=== PATIENT | female | born 1955 | race Caucasian/White ===

== ENCOUNTER → 2017-06-20 | Outpatient (CLI) | payer MEDICARE, OTHER ==
[2017-06-20 11:59] LABS: ABG BASE EXCESS 13.6 MMOL/L (-2.5-2.5); ABG OXYGEN SATURATION 90 % (94-100); ABG PCO2 60 MMHG (35-45); ABG PH 7.42 (7.37-7.43); ABG PO2 56 MMHG (79-93); ABG TCO2 40.6 MMOL/L (21.0-31.0)
[2017-06-20 12:01] LABS: ALLENS TEST YES-POS
[2017-06-20 12:02] LABS: PATIENT TEMP 98.9; VENTILATOR NO
--- NOTE | 2017-06-20 12:29 | Diagnostic Imaging Report ---
INDICATION: Hypoxemia. PA and lateral chest. FINDINGS: There is some discoid atelectasis at the left lung base. There is a 1.5 cm nodular opacity in the right upper chest. There are no consolidating infiltrates. IMPRESSION: Left lower lobe discoid atelectasis. Possible developing nodule in right upper lobe. Short interval followup imaging recommended. Dictated by: Dictated on workstation # [id number]
== END ==
LOC: RAD 11:30
PROVIDERS: ATTEND Nurse Practitioner Family
DX: J98.11 Atelectasis (principal); J44.9 Chronic obstructive pulmonary disease, unspecified
CPT/HCPCS: 71046; 82805

== ENCOUNTER → 2017-06-26 | Outpatient (CLI) | payer MEDICARE, OTHER ==
[~2017-06-26] MED LIST: RT-ALBUTEROL SULF 2.5 MG/3 ML PRE-MIX VIAL INH ONE
== END ==
LOC: RT 13:13
PROVIDERS: ATTEND Nurse Practitioner Family
DX: J45.909 Unspecified asthma, uncomplicated (principal); J44.9 Chronic obstructive pulmonary disease, unspecified; R09.02 Hypoxemia
CPT/HCPCS: 94060; 94726; 94729

== ENCOUNTER 2017-07-03 21:14 | Outpatient (CLI) | payer MEDICARE, OTHER | END 2017-07-04 06:37 | disposition home or self-care (01) | LOC: SLEEP 21:14 | PROVIDERS: ATTEND Nurse Practitioner Family | DX: G47.33 Obstructive sleep apnea (adult) (pediatric) (principal); G25.81 Restless legs syndrome; G47.50 Parasomnia, unspecified; G47.10 Hypersomnia, unspecified | CPT/HCPCS: 95810 ==

== ENCOUNTER 2017-10-11 11:23 | Inpatient (IN) | payer MEDICARE, OTHER ==
[~2017-10-11] VITALS: Ht 162.6 cm; Wt 114.3 kg
[2017-10-11 11:45] VITALS: BP 145/85
[2017-10-11] MEDS ORDERED: IBUPROFEN 600 MG (MOTRIN) TAB PO PRN (11:45)
[2017-10-11] MEDS ORDERED: ACETAMINOPHEN 500 MG TAB (TYLENOL) PO PRN (11:45)
[2017-10-11] MEDS ORDERED: LOSA100T28 PO (12:12)
[2017-10-11] MEDS ORDERED: FERR325T18 PO (12:12)
[2017-10-11] MEDS ORDERED: TRAM50TA2 PO (12:12)
[2017-10-11] MEDS ORDERED: POTA20TA15 PO (12:12)
[2017-10-11] MEDS ORDERED: OMEP20CA12 PO (12:12)
[2017-10-11] MEDS ORDERED: METO2.5T PO (12:12)
[2017-10-11] MEDS ORDERED: FURO40TA4 PO (12:12)
[2017-10-11] MEDS ORDERED: METF500T5 PO (12:12)
[2017-10-11] MEDS ORDERED: PRAM0.128 PO (12:12)
--- NOTE | 2017-10-11 12:22 | Clinic Account Progress/Dx ---
Clinic Account Progress/Dx DIAGNOSIS: Date Seen by Provider: Oct 11, 2017 Time Seen by Provider: 11:00 (seen by provider at [facility]) see diagnosis listed (1) Pneumonia, organism unspecified Progress Note: Patient directly admitted from [facility] for pneumonia which has failed out-patient therapy. Patient was seen by Laurel Sanon on Saturday with c/o cough and SOA for the past month. Pt has hx of COPD and is on 2-3L home oxygen normally. Pt was noted to have bilateral pneumonia on CXR on Saturday w/ RUL, RLL, LLL infiltrated. WBC was 11.4, O2 sat at that time was 95%. Pt was started on Doxycyline and had f/u today. Pt reports no improvement/worsening of symptoms, decreased appetite and weight loss since last visit and required 5L to maintain O2 sat at 92%. VS at clinic: BP 114/68 P 110, afebrile. Plan: Will directly admit patient for IV antibiotics. JUANITO QUINTANILLA DO Oct 11, 2017 12:22
[2017-10-11 12:38] LABS: BASOPHILS # (AUTO) 0.1 10^3/uL (0.0-0.1); BASOPHILS % (AUTO) 1 % (0-10); EOSINOPHILS # (AUTO) 0.2 10^3/uL (0.0-0.3); EOSINOPHILS % (AUTO) 1 % (0-10); HEMATOCRIT 33 % (35-52); LYMPHOCYTES # (AUTO) 1.7 X 10^3 (1.0-4.0); LYMPHOCYTES % (AUTO) 13 % (12-44); MEAN CORPUSCULAR HEMOGLOBIN 24 PG (25-34); MEAN CORPUSCULAR HGB CONC 28 G/DL (32-36); MEAN CORPUSCULAR VOLUME 86 FL (80-99); MEAN PLATELET VOLUME 10.3 FL (7.4-10.4); MONOCYTES # (AUTO) 1.1 X 10^3 (0.0-1.0); MONOCYTES % (AUTO) 8 % (0-12); NEUTROPHILS # (AUTO) 10.2 X 10^3 (1.8-7.8); NEUTROPHILS % (AUTO) 77 % (42-75); PLATELET COUNT 580 10^3/uL (130-400); WHITE BLOOD COUNT 13.2 10^3/uL (4.3-11.0)
[2017-10-11] MEDS: CEFEPIME INJECTION 2,000 MG in NS (IVPB) 50 ML IV SCH (12:51)
[2017-10-11 13:00] LABS: ALANINE AMINOTRANSFERASE 11 U/L (0-55); ALBUMIN 3.6 GM/DL (3.2-4.5); ALKALINE PHOSPHATASE 97 U/L (40-136); BILIRUBIN,TOTAL 0.3 MG/DL (0.1-1.0); BUN/CREATININE RATIO 24; CALCIUM 9.7 MG/DL (8.5-10.1); CHLORIDE 79 MMOL/L (98-107); CREATININE SERUM 0.74 MG/DL (0.60-1.30); GFR ESTIMATED > 60; GLUCOSE 111 MG/DL (70-105); POTASSIUM 3.8 MMOL/L (3.6-5.0); SODIUM 140 MMOL/L (135-145); TOTAL PROTEIN 8.2 GM/DL (6.4-8.2)
[2017-10-11] MEDS ORDERED: ENOXAPARIN 40 MG/0.4 ML (LOVENOX) SYR SQ SCH (13:00)
[2017-10-11] MEDS ORDERED: ROPI2TAB4 PO (13:06)
[2017-10-11] MEDS ORDERED: BUDE10.2 IH (13:06)
[2017-10-11] MEDS ORDERED: MONT10TA24 PO (13:06)
[2017-10-11] MEDS ORDERED: DOXY100C42 PO (13:06)
[2017-10-11] MEDS ORDERED: FLUT16SP22 NS (13:06)
[2017-10-11] MEDS ORDERED: ALBU18HF2 INH (13:06)
[2017-10-11] MEDS ORDERED: IPRA3AMP NEB (13:06)
[2017-10-11 13:12] LABS: CARBON DIOXIDE 46 MMOL/L (21-32)
[2017-10-11] MEDS ORDERED: NS IV 1000 ML 1,000 ML ONE (13:29)
[2017-10-11 14:00] VITALS: BP 114/66
[2017-10-11] MEDS ORDERED: RT-ALBUTEROL/IPRATROPIUM 3 ML (DUONEB) VIAL ONE (14:22)
[2017-10-11] MEDS ORDERED: RT-ALBUTEROL/IPRATROPIUM 3 ML (DUONEB) VIAL INH PRN (14:30)
[2017-10-11] MEDS: RT-ALBUTEROL/IPRATROPIUM 3 ML (DUONEB) VIAL INH SCH ×2 (14:34→19:28)
[2017-10-11] MEDS: NS IV 1000 ML 1,000 ML IV SCH (14:52)
--- NOTE | 2017-10-11 16:16 | Diagnostic Imaging Report ---
INDICATION: Pneumonia. COMPARISON: 06/20/2017. FINDINGS: Two views of the chest are obtained. Heart size is normal. The pulmonary vessels do not appear congested. There is no pneumothorax or pleural fluid suspected. There is a 4.6 cm mass-like opacity of the right upper lobe adjacent to the right hilum and there is a new nodular prominence of the right pulmonary artery. Findings are concerning for neoplastic process or adenopathy. Some atelectasis or scarring in the lingula/left lung base appears fairly stable. There are degenerative changes in the spine. IMPRESSION: There is a new 4.6 cm mass-like opacity right upper lobe with possible right hilar adenopathy. CT scan of the chest is recommended for further evaluation. Some airspace disease in the lingula/left lung base is similar to the prior study. Report was faxed to the office of Dr. Shira Walker at 4:11 p.m., by [email or web address] (for YOLI). Dictated by: Dictated on workstation # [id number]
[2017-10-11] MEDS: FUROSEMIDE 40 MG (LASIX) TAB PO SCH (16:55)
[2017-10-11 17:18] VITALS: BP 143/66
[2017-10-11] MEDS: rOPINIRole 1 MG (REQUIP) TABLET PO SCH ×2 (17:41→20:29)
[2017-10-11 19:05] VITALS: BP 136/62
[2017-10-11] MEDS: PRAMIPEXOLE 0.125 MG (MIRAPEX) TABLET PO SCH (20:29)
[2017-10-12] VITALS: BP 115/79
[2017-10-12] MEDS: CEFEPIME INJECTION 2,000 MG in NS (IVPB) 50 ML IV SCH ×2 (00:04→12:05)
[2017-10-12 04:05] VITALS: BP 129/80
[2017-10-12] MEDS: NS IV 1000 ML 1,000 ML IV SCH ×2 (04:46→18:42)
[2017-10-12 04:57] LABS: BASOPHILS # (AUTO) 0.1 10^3/uL (0.0-0.1); BASOPHILS % (AUTO) 1 % (0-10); EOSINOPHILS # (AUTO) 0.3 10^3/uL (0.0-0.3); EOSINOPHILS % (AUTO) 3 % (0-10); HEMATOCRIT 30 % (35-52); HEMOGLOBIN 8.6 G/DL (11.5-16.0); LYMPHOCYTES # (AUTO) 2.2 X 10^3 (1.0-4.0); LYMPHOCYTES % (AUTO) 19 % (12-44); MEAN CORPUSCULAR HEMOGLOBIN 24 PG (25-34); MEAN CORPUSCULAR HGB CONC 28 G/DL (32-36); MEAN CORPUSCULAR VOLUME 84 FL (80-99); MEAN PLATELET VOLUME 10.4 FL (7.4-10.4); MONOCYTES % (AUTO) 9 % (0-12); NEUTROPHILS # (AUTO) 7.6 X 10^3 (1.8-7.8); NEUTROPHILS % (AUTO) 68 % (42-75); PLATELET COUNT 542 10^3/uL (130-400); RED BLOOD COUNT 3.64 10^6/uL (4.35-5.85); RED CELL DISTRIBUTION WIDTH 17.3 % (10.0-14.5); WHITE BLOOD COUNT 11.2 10^3/uL (4.3-11.0)
[2017-10-12 05:13] LABS: BUN/CREATININE RATIO 34; CALCIUM 9.1 MG/DL (8.5-10.1); CARBON DIOXIDE 41 MMOL/L (21-32); CHLORIDE 84 MMOL/L (98-107); CREATININE SERUM 0.71 MG/DL (0.60-1.30); GFR ESTIMATED > 60; GLUCOSE 115 MG/DL (70-105); POTASSIUM 3.5 MMOL/L (3.6-5.0); SODIUM 138 MMOL/L (135-145)
[2017-10-12] MEDS: KCL 20 MEQ TAB (K-DUR) PO SCH (06:33)
[2017-10-12] MEDS: FUROSEMIDE 40 MG (LASIX) TAB PO SCH ×2 (06:33→16:50)
[2017-10-12] MEDS: METOLAZONE 2.5 MG (ZAROXOLYN) TAB PO SCH (06:33)
[2017-10-12] MEDS: PANTOPRAZOLE 20 MG TABLET (PROTONIX) PO SCH (06:33)
[2017-10-12] MEDS: rOPINIRole 1 MG (REQUIP) TABLET PO SCH ×4 (06:34→21:12)
[2017-10-12] MEDS ORDERED: metFORMIN 500 MG (GLUCOPHAGE) TAB PO SCH (07:00)
[2017-10-12] MEDS: RT-ALBUTEROL/IPRATROPIUM 3 ML (DUONEB) VIAL INH SCH ×4 (07:46→18:42)
[2017-10-12] MEDS: LOSARTAN 100 MG (COZAAR) TABLET PO SCH (07:57)
[2017-10-12] MEDS: FERROUS SULF 325 MG (IRON) TAB PO SCH (07:57)
[2017-10-12 08:00] VITALS: BP 142/65
--- NOTE | 2017-10-12 08:40 | History & Physicial (CHS) ---
HPI History of Present Illness: 62 yo F that was sent from [facility] for respiratory distress from bilateral pneumonia. Patient has known COPD and is chronically on 2-3 L at baseline, for the last 3 days patient has been requiring 5L to maintain oxygen saturations. She has had 3 days of antibiotics without any improvement. Patient states that she has been feeling worse for the last month with increase SOA. Denies any fevers or chills. No sick contacts. Patient states that she has not missed any medications. Source: patient, RN/MD Exam Limitations: no limitations Date seen by provider: Oct 12, 2017 Time Seen by Provider: 07:10 Attending Physician Olivia Winkler MD PCP Shira Walker DO Consult Date of Admission Oct 11, 2017 at 11:40 Home Medications Home Medications Reviewed patient Home Medication Reconciliation performed by pharmacy medication reconciliations environmental sampling technician and/or nursing. Patients Allergies have been reviewed. Allergies Coded Allergies: latex (Unverified Allergy, Unknown, 10/11/17) gabapentin (Unverified Adverse Reaction, Unknown, drowsiness and change in mental status, 10/11/17) [facility]-Hnitwi-Wjmvkw Hx Patient Social History Alcohol Use: Denies Use Recreational Drug Use: No Smoking Status: Former Smoker Physical Abuse Screen: No Sexual Abuse: No Past Medical History COPD with oxygen dependence of 2-3 L baseline HTN Pre DM Review of Systems ([facility]) Constitutional: No chills, No fever; malaise, weakness EENTM: nose congestion; No ear pain, No mouth pain, No throat pain Respiratory: cough, dyspnea on exertion, short of breath Cardiovascular: no symptoms reported; No chest pain, No palpitations Gastrointestinal: no symptoms reported; No abdominal pain, No constipation, No diarrhea, No nausea, No vomiting Genitourinary: no symptoms reported; No dysuria, No frequency, No hematuria : No Musculoskeletal: no symptoms reported Skin: no symptoms reported; No lesions, No rash Psychiatric/Neurological: No Symptoms Reported; Denies Headache Reviewed Test Results Reviewed Test Results Lab Laboratory Tests Test 10/11/17 12:13 10/11/17 14:35 10/12/17 04:28 10/12/17 04:43 Range/Units White Blood Count 13.2 H 11.2 H 4.3-11.0 10^3/uL Red Blood Count 3.80 L 3.64 L 4.35-5.85 10^6/uL Hemoglobin 9.0 L 8.6 L 11.5-16.0 G/DL Hematocrit 33 L 30 L 35-52 % Mean Corpuscular Volume 86 84 80-99 FL Mean Corpuscular Hemoglobin 24 L 24 L 25-34 PG Mean Corpuscular Hemoglobin Concent 28 L 28 L 32-36 G/DL Red Cell Distribution Width 17.0 H 17.3 H 10.0-14.5 % Platelet Count 580 H 542 H 130-400 10^3/uL Mean Platelet Volume 10.3 10.4 7.4-10.4 FL Neutrophils (%) (Auto) 77 H 68 42-75 % Lymphocytes (%) (Auto) 13 19 12-44 % Monocytes (%) (Auto) 8 9 0-12 % Eosinophils (%) (Auto) 1 3 0-10 % Basophils (%) (Auto) 1 1 0-10 % Neutrophils # (Auto) 10.2 H 7.6 1.8-7.8 X 10^3 Lymphocytes # (Auto) 1.7 2.2 1.0-4.0 X 10^3 Monocytes # (Auto) 1.1 H 1.0 0.0-1.0 X 10^3 Eosinophils # (Auto) 0.2 0.3 0.0-0.3 10^3/uL Basophils # (Auto) 0.1 0.1 0.0-0.1 10^3/uL Sodium Level 140 138 135-145 MMOL/L Potassium Level 3.8 3.5 L 3.6-5.0 MMOL/L Chloride Level 79 L 84 L 98-107 MMOL/L Carbon Dioxide Level 46 *H 41 H 21-32 MMOL/L Anion Gap 15 H 13 5-14 MMOL/L Blood Urea Nitrogen 18 24 H 7-18 MG/DL Creatinine 0.74 0.71 0.60-1.30 MG/DL Estimat Glomerular Filtration Rate > 60 > 60 BUN/Creatinine Ratio 24 34 Glucose Level 111 H 115 H 70-105 MG/DL Lactic Acid Level 2.56 *H 2.66 *H 0.50-2.00 MMOL/L Calcium Level 9.7 9.1 8.5-10.1 MG/DL Total Bilirubin 0.3 0.1-1.0 MG/DL Aspartate Amino Transf (AST/SGOT) 8 5-34 U/L Alanine Aminotransferase (ALT/SGPT) 11 0-55 U/L Alkaline Phosphatase 97 40-136 U/L C-Reactive Protein High Sensitivity 1.16 H 0.00-0.50 MG/DL Total Protein 8.2 6.4-8.2 GM/DL Albumin 3.6 3.2-4.5 GM/DL Glucometer 132 H 70-110 MG/DL Test 10/12/17 08:07 Range/Units Lactic Acid Level 1.62 0.50-2.00 MMOL/L Radiology Date of Exam: 10/11/17 CHEST PA/LAT (2 VIEW) INDICATION: Pneumonia. COMPARISON: 06/20/2017. FINDINGS: Two views of the chest are obtained. Heart size is normal. The pulmonary vessels do not appear congested. There is no pneumothorax or pleural fluid suspected. There is a 4.6 cm mass-like opacity of the right upper lobe adjacent to the right hilum and there is a new nodular prominence of the right pulmonary artery. Findings are concerning for neoplastic process or adenopathy. Some atelectasis or scarring in the lingula/left lung base appears fairly stable. There are degenerative changes in the spine. IMPRESSION: There is a new 4.6 cm mass-like opacity right upper lobe with possible right hilar adenopathy. CT scan of the chest is recommended for further evaluation. Some airspace disease in the lingula/left lung base is similar to the prior study. Physical Exam-([facility]) Physical Exam Vital Signs VS - Last 72 Hours, by Label 10/11/17 10/11/17 10/11/17 10/11/17 11:45 14:00 14:00 14:34 Temp 98.0 Pulse 97 98 Resp 24 B/P (MAP) 145/85 (105) Pulse Ox 95 90 90 90 O2 Delivery Nasal Cannula High Flow N/C High Flow N/C O2 Flow Rate 5.00 5.00 5.00 10/11/17 10/11/17 10/11/17 10/11/17 14:55 17:18 19:05 19:28 Temp 99.6 99.4 Pulse 97 98 Resp 20 18 B/P (MAP) 143/66 (91) 136/62 (86) Pulse Ox 90 93 94 93 O2 Delivery High Flow N/C Nasal Cannula Nasal Cannula High Flow N/C O2 Flow Rate 5.00 5.00 5.00 5.00 10/11/17 10/12/17 10/12/17 10/12/17 20:20 00:00 04:05 07:49 Temp 97.9 98.0 Pulse 90 89 Resp 20 20 B/P (MAP) 115/79 (91) 129/80 (96) Pulse Ox 99 93 94 O2 Delivery High Flow N/C High Flow N/C High Flow N/C High Flow N/C O2 Flow Rate 5.00 5.00 5.00 10/12/17 10/12/17 08:00 08:16 Temp 97.5 Pulse 90 Resp 18 B/P (MAP) 142/65 (90) Pulse Ox 95 O2 Delivery High Flow N/C High Flow N/C O2 Flow Rate 5.00 5.00 Capillary Refill : General Appearance: WD/WN, no apparent distress HEENT: PERRL/EOMI Neck: non-tender, full range of motion, supple Respiratory: chest non-tender, lungs clear, no respiratory distress, no accessory muscle use Cardiovascular: normal peripheral pulses, regular rate, rhythm, no edema, no murmur Gastrointestinal: normal bowel sounds, non tender, soft, no organomegaly Back: no CVA tenderness, no vertebral tenderness Extremities: normal range of motion, no pedal edema, no calf tenderness, normal capillary refill Neurologic/Psychiatric: stores clerk II-XII nml as tested, no motor/sensory deficits, alert, normal mood/affect, oriented x 3 Skin: normal color, warm/dry Lymphatic: no adenopathy Assessment/Plan Assessment/Plan Admission Status: Inpatient Order (span 2 midnights) Reason for Inpatient Admission: Increased oxygen supplementation (1) Acute and chronic respiratory failure with hypoxia Status: Acute Assessment & Plan: - Titrate oxygen as tolerated, MAT protocol, Continue antibiotics, CT chest pending for concerning mass in lung (2) Pneumonia Status: Acute Assessment & Plan: - See Above, will continue antibiotics at this time Qualifiers: Qualified Codes: J18.1 - Lobar pneumonia, unspecified organism (3) Lung mass Status: Acute Assessment & Plan: - Right Upper lobe mass with adenopathy, CT chest pending (4) HTN (hypertension) Status: Chronic Assessment & Plan: - Continue home meds Qualifiers: Qualified Codes: I10 - Essential (primary) hypertension (5) Normocytic anemia Status: Chronic Assessment & Plan: - Getting iron studies, HDS (6) Abnormal glucose Status: Chronic Assessment & Plan: - Holding metformin, will get A1c (7) DVT prophylaxis Status: Acute Assessment & Plan: - Start Lovenox 40 mg Daily Clinical Quality Measures DVT/VTE Risk/Contraindication: Risk Factor Score Per Nursin RFS Level Per Nursing on Admit: 4+=Very High Copy Copies To 1: Yumiko PIPER HOLLY R MD Oct 12, 2017 08:40
[2017-10-12] MEDS ORDERED: METOLAZONE 2.5 MG PO SCH (09:00)
[2017-10-12] MEDS ORDERED: NON-FORMULARY MEDICATION 1 EA EA (Metformin HCl 500 MG) PO SCH (09:00)
[2017-10-12] MEDS ORDERED: OMEPRAZOLE 20 MG (PriLOSEC) CAP NON-FORMULARY PO SCH (09:00)
[2017-10-12] MEDS: ENOXAPARIN 40 MG/0.4 ML (LOVENOX) SYR SC SCH ×2 (10:08→21:12)
--- NOTE | 2017-10-12 11:14 | Diagnostic Imaging Report ---
PROCEDURE: CT chest without contrast. TECHNIQUE: Multiple contiguous axial images were obtained through the chest without the use of intravenous contrast. INDICATION: Pneumonia with lung mass Some irregular mass in the right lower lobe near the superior segment posteriorly accounting for the growing radiographic density noted on earlier x-ray. It measures a 3.8 x 3.3 cm and is suspicious for cancer. This could be biopsied percutaneously utilizing CT guidance. Tiny bethany-fissural nodule at the left apex posteriorly as a morphology likely reflective of a benign scar or lymph node. Some heterogeneous air trapping. There is partial atelectasis in the floors of the lung bases anteriorly at the right middle lobe and lingula bethany-fissural. No other suspect lung mass. There were no findings of thoracic lymphadenopathy. There is no effusion or pneumothorax. There is mild right greater than left lobe thyromegaly. There is irregular lucencies involving the body greater than posterior elements of the fourth thoracic vertebral body. Portions of the body showed features raising the question of hemangiomata however its diffuse involvement as well as the appearance of the posterior elements are less suggestive of that entity. Bony metastatic disease could not be confidently excluded MRI with and without contrast suggested as its further evaluation. At the same level there are bilateral paravertebral soft tissue like density masses larger on the right measuring 1.9 x 1.3 cm. Remaining osseous structures were unremarkable. Visualized upper abdomen reveals a partially visualized nonenhanced liver grossly unremarkable and the adrenals showed no evidence for mass. IMPRESSION: Some irregular mass suspect for carcinoma superior segment right lower lobe. This would be amenable to CT-guided biopsy. The T4 vertebral body lesion is indeterminate between atypical hemangioma versus a solitary bony metastasis. Some adjacent soft tissue fullness right greater than left at that level is indeterminate benign versus malignant. MRI may be of benefit as further evaluation. As an alternative metabolic CT fusion PET may also provide utility. No other potential metastatic foci were found. Dictated by: Dictated on workstation # [id number]
[2017-10-12 12:00] VITALS: BP 135/58
[2017-10-12 16:00] VITALS: BP 131/60
[2017-10-12 20:00] VITALS: BP 137/68
[2017-10-12] MEDS: PRAMIPEXOLE 0.125 MG (MIRAPEX) TABLET PO SCH (21:12)
[2017-10-13] VITALS (7 sets, daily range): BP systolic 123–163; BP diastolic 60–79
[2017-10-13] MEDS: CEFEPIME INJECTION 2,000 MG in NS (IVPB) 50 ML IV SCH ×2 (00:16→11:32)
[2017-10-13 04:55] LABS: BASOPHILS # (AUTO) 0.1 10^3/uL (0.0-0.1); BASOPHILS % (AUTO) 1 % (0-10); EOSINOPHILS # (AUTO) 0.5 10^3/uL (0.0-0.3); EOSINOPHILS % (AUTO) 5 % (0-10); HEMATOCRIT 29 % (35-52); HEMOGLOBIN 8.2 G/DL (11.5-16.0); LYMPHOCYTES # (AUTO) 2.1 X 10^3 (1.0-4.0); LYMPHOCYTES % (AUTO) 22 % (12-44); MEAN CORPUSCULAR HEMOGLOBIN 23 PG (25-34); MEAN CORPUSCULAR HGB CONC 28 G/DL (32-36); MEAN CORPUSCULAR VOLUME 84 FL (80-99); MEAN PLATELET VOLUME 10.1 FL (7.4-10.4); MONOCYTES # (AUTO) 0.9 X 10^3 (0.0-1.0); MONOCYTES % (AUTO) 10 % (0-12); NEUTROPHILS # (AUTO) 5.7 X 10^3 (1.8-7.8); NEUTROPHILS % (AUTO) 62 % (42-75); PLATELET COUNT 539 10^3/uL (130-400); RED BLOOD COUNT 3.51 10^6/uL (4.35-5.85); RED CELL DISTRIBUTION WIDTH 17.3 % (10.0-14.5); WHITE BLOOD COUNT 9.2 10^3/uL (4.3-11.0)
[2017-10-13 05:15] LABS: ALANINE AMINOTRANSFERASE < 6 U/L (0-55); ALBUMIN 3.2 GM/DL (3.2-4.5); ALKALINE PHOSPHATASE 82 U/L (40-136); BILIRUBIN,TOTAL 0.3 MG/DL (0.1-1.0); BUN/CREATININE RATIO 30; CALCIUM 8.8 MG/DL (8.5-10.1); CARBON DIOXIDE 40 MMOL/L (21-32); CHLORIDE 87 MMOL/L (98-107); CREATININE SERUM 0.67 MG/DL (0.60-1.30); GFR ESTIMATED > 60; GLUCOSE 117 MG/DL (70-105); POTASSIUM 3.8 MMOL/L (3.6-5.0); SODIUM 139 MMOL/L (135-145); TOTAL PROTEIN 7.4 GM/DL (6.4-8.2)
[2017-10-13] MEDS: NS IV 1000 ML 1,000 ML IV SCH (05:58)
[2017-10-13] MEDS: FUROSEMIDE 40 MG (LASIX) TAB PO SCH ×2 (05:58→16:47)
[2017-10-13] MEDS: KCL 20 MEQ TAB (K-DUR) PO SCH (05:58)
[2017-10-13] MEDS: METOLAZONE 2.5 MG (ZAROXOLYN) TAB PO SCH (05:58)
[2017-10-13] MEDS: PANTOPRAZOLE 20 MG TABLET (PROTONIX) PO SCH (05:58)
[2017-10-13] MEDS: RT-ALBUTEROL/IPRATROPIUM 3 ML (DUONEB) VIAL INH SCH ×4 (06:37→18:37)
[2017-10-13] MEDS: FERROUS SULF 325 MG (IRON) TAB PO SCH (08:13)
[2017-10-13] MEDS: LOSARTAN 100 MG (COZAAR) TABLET PO SCH (09:17)
[2017-10-13] MEDS: ENOXAPARIN 40 MG/0.4 ML (LOVENOX) SYR SC SCH (09:18)
[2017-10-13] MEDS: rOPINIRole 1 MG (REQUIP) TABLET PO SCH ×4 (09:18→21:22)
--- NOTE | 2017-10-13 13:31 | Progress Note (SOAP) ---
Subjective Subjective/Events-last exam Patient states that she is feeling much better this AM. She has been able to titrate down on her oxygen. Tolerating PO diet. Review of Systems Date Seen by Provider: Oct 13, 2017 Time Seen by Provider: 11:15 General: No Chills, No Night Sweats Pulmonary: Dyspnea (improving) Cardiovascular: No: Chest Pain, Palpitations Focused Exam Lactate Level 10/11/17 12:13: Lactic Acid Level 2.56*H 10/11/17 14:35: Lactic Acid Level 2.66*H 10/12/17 08:07: Lactic Acid Level 1.62 Objective Exam Last Set of Vital Signs Vital Signs Date Time Temp Pulse Resp B/P (MAP) Pulse Ox O2 Delivery O2 Flow Rate FiO2 10/13/17 09:56 94 High Flow N/C 5.00 10/13/17 08:00 96.8 91 20 138/60 (86) Capillary Refill : I&O Intake and Output 10/13/17 00:00 Intake Total 3880 ml Balance 3880 ml Intake Oral 2830 ml IV Total 1050 ml # Voids 11 General: Alert, Oriented X3, No Acute Distress HEENT: Mucous Memb Moist/[place] Lungs: Clear to Auscultation, Normal Air Movement, Other (mild increased work of breathing with activity) Heart: Regular Rate, No Murmurs Abdomen: Normal Bowel Sounds, Soft, No Tenderness, No Hepatosplenomegaly, No Masses Extremities: No Edema, No Tenderness/Swelling Results/Procedures Lab Laboratory Tests 10/12/17 18:44: Glucometer 134H 10/13/17 04:43: White Blood Count 9.2, Red Blood Count 3.51L, Hemoglobin 8.2L, Hematocrit 29L, Mean Corpuscular Volume 84, Mean Corpuscular Hemoglobin 23L, Mean Corpuscular Hemoglobin Concent 28L, Red Cell Distribution Width 17.3H, Platelet Count 539H, Mean Platelet Volume 10.1, Neutrophils (%) (Auto) 62, Lymphocytes (%) (Auto) 22 , Monocytes (%) (Auto) 10, Eosinophils (%) (Auto) 5, Basophils (%) (Auto) 1, Neutrophils # (Auto) 5.7, Lymphocytes # (Auto) 2.1, Monocytes # (Auto) 0.9, Eosinophils # (Auto) 0.5H, Basophils # (Auto) 0.1, Sodium Level 139, Potassium Level 3.8, Chloride Level 87L, Carbon Dioxide Level 40H, Anion Gap 12, Blood Urea Nitrogen 20H, Creatinine 0.67, Estimat Glomerular Filtration Rate > 60, BUN /Creatinine Ratio 30, Glucose Level 117H, Calcium Level 8.8, Total Bilirubin 0.3 , Aspartate Amino Transf (AST/SGOT) 9, Alanine Aminotransferase (ALT/SGPT) < 6, Alkaline Phosphatase 82, Total Protein 7.4, Albumin 3.2 10/13/17 05:59: Glucometer 120H 10/13/17 09:34: Glucometer 127H Microbiology 10/11/17 Blood Culture - Preliminary, Resulted No growth Radiology Date of Exam: 10/11/17 CHEST PA/LAT (2 VIEW) INDICATION: Pneumonia. COMPARISON: 06/20/2017. FINDINGS: Two views of the chest are obtained. Heart size is normal. The pulmonary vessels do not appear congested. There is no pneumothorax or pleural fluid suspected. There is a 4.6 cm mass-like opacity of the right upper lobe adjacent to the right hilum and there is a new nodular prominence of the right pulmonary artery. Findings are concerning for neoplastic process or adenopathy. Some atelectasis or scarring in the lingula/left lung base appears fairly stable. There are degenerative changes in the spine. IMPRESSION: There is a new 4.6 cm mass-like opacity right upper lobe with possible right hilar adenopathy. CT scan of the chest is recommended for further evaluation. Some airspace disease in the lingula/left lung base is similar to the prior study. Assessment/Plan Assessment/Plan (1) Acute and chronic respiratory failure with hypoxia Status: Acute Assessment & Plan: - Titrate oxygen as tolerated, MAT protocol, Continue antibiotics, CT chest pending for concerning mass in lung 10/13: continue to titrate oxygen, CT guided bx scheduled for tomorrow, continue antibiotics at this time (2) Pneumonia Status: Acute Assessment & Plan: - See Above, will continue antibiotics at this time Qualifiers: Qualified Codes: J18.1 - Lobar pneumonia, unspecified organism (3) Lung mass Status: Acute Assessment & Plan: - Right Upper lobe mass with adenopathy, CT chest pending 10/13: CT guided Bx scheduled for tomorrow (4) HTN (hypertension) Status: Chronic Assessment & Plan: - Continue home meds Qualifiers: Qualified Codes: I10 - Essential (primary) hypertension (5) Normocytic anemia Status: Chronic Assessment & Plan: - Getting iron studies, HDS (6) Abnormal glucose Status: Chronic Assessment & Plan: - Holding metformin, will get A1c (7) DVT prophylaxis Status: Acute Assessment & Plan: - Holding dose for procedure in AM Clinical Quality Measures DVT/VTE Risk/Contraindication: Risk Factor Score Per Nursin RFS Level Per Nursing on Admit: 4+=Very High NGUYEN KEEN MD Oct 13, 2017 13:31
[2017-10-13] MEDS: PRAMIPEXOLE 0.125 MG (MIRAPEX) TABLET PO SCH (21:22)
[2017-10-14] MEDS: CEFEPIME INJECTION 2,000 MG in NS (IVPB) 50 ML IV SCH ×2 (00:58→11:22)
[2017-10-14] MEDS: KCL 20 MEQ TAB (K-DUR) PO SCH (06:29)
[2017-10-14] MEDS: PANTOPRAZOLE 20 MG TABLET (PROTONIX) PO SCH (06:29)
[2017-10-14] MEDS: METOLAZONE 2.5 MG (ZAROXOLYN) TAB PO SCH (06:29)
[2017-10-14] MEDS: FUROSEMIDE 40 MG (LASIX) TAB PO SCH ×2 (06:29→16:53)
[2017-10-14 06:44] LABS: BASOPHILS # (AUTO) 0.1 10^3/uL (0.0-0.1); BASOPHILS % (AUTO) 1 % (0-10); EOSINOPHILS # (AUTO) 0.5 10^3/uL (0.0-0.3); EOSINOPHILS % (AUTO) 5 % (0-10); HEMATOCRIT 30 % (35-52); HEMOGLOBIN 8.8 G/DL (11.5-16.0); LYMPHOCYTES # (AUTO) 1.7 X 10^3 (1.0-4.0); LYMPHOCYTES % (AUTO) 17 % (12-44); MEAN CORPUSCULAR HEMOGLOBIN 24 PG (25-34); MEAN CORPUSCULAR HGB CONC 29 G/DL (32-36); MEAN CORPUSCULAR VOLUME 83 FL (80-99); MEAN PLATELET VOLUME 10.5 FL (7.4-10.4); MONOCYTES # (AUTO) 0.9 X 10^3 (0.0-1.0); MONOCYTES % (AUTO) 8 % (0-12); NEUTROPHILS # (AUTO) 7.3 X 10^3 (1.8-7.8); NEUTROPHILS % (AUTO) 70 % (42-75); PLATELET COUNT 534 10^3/uL (130-400); RED BLOOD COUNT 3.66 10^6/uL (4.35-5.85); RED CELL DISTRIBUTION WIDTH 17.5 % (10.0-14.5); WHITE BLOOD COUNT 10.4 10^3/uL (4.3-11.0)
[2017-10-14 07:05] LABS: PROTHROMBIN TIME PATIENT 13.6 SEC (12.2-14.7)
[2017-10-14 07:08] LABS: ALANINE AMINOTRANSFERASE 11 U/L (0-55); ALBUMIN 3.5 GM/DL (3.2-4.5); ALKALINE PHOSPHATASE 84 U/L (40-136); BILIRUBIN,TOTAL 0.3 MG/DL (0.1-1.0); BUN/CREATININE RATIO 38; CALCIUM 9.2 MG/DL (8.5-10.1); CARBON DIOXIDE 38 MMOL/L (21-32); CHLORIDE 88 MMOL/L (98-107); CREATININE SERUM 0.68 MG/DL (0.60-1.30); GFR ESTIMATED > 60; GLUCOSE 127 MG/DL (70-105); POTASSIUM 3.8 MMOL/L (3.6-5.0); SODIUM 136 MMOL/L (135-145)
[2017-10-14] MEDS ORDERED: NS IV 1000 ML 1,000 ML IV STA (07:58)
[2017-10-14] MEDS ORDERED: fentaNYL INJECTION 100 MCG/2 ML AMP IVP PRN (08:00)
[2017-10-14] MEDS ORDERED: LIDOCAINE 1% INJ 20 ML 20 ML VIAL INJ NR (08:00)
[2017-10-14] MEDS ORDERED: MIDAZOLAM 2 MG/2 ML (VERSED) VIAL IVP PRN (08:00)
[2017-10-14 08:12] VITALS: BP 133/61
[2017-10-14] MEDS: LOSARTAN 100 MG (COZAAR) TABLET PO SCH (08:31)
[2017-10-14] MEDS: rOPINIRole 1 MG (REQUIP) TABLET PO SCH ×4 (08:31→22:19)
[2017-10-14] MEDS: RT-ALBUTEROL/IPRATROPIUM 3 ML (DUONEB) VIAL INH SCH ×4 (08:33→18:41)
[2017-10-14] MEDS: FERROUS SULF 325 MG (IRON) TAB PO SCH (08:59)
[2017-10-14 13:38] VITALS: BP 167/69
[2017-10-14 13:43] VITALS: BP 150/64
[2017-10-14 13:48] VITALS: BP 150/63
[2017-10-14] MEDS ORDERED: HYDROcodone/APAP 5 MG/325 MG (LORTAB) TAB PO PRN (14:15)
[2017-10-14 15:50] VITALS: BP 113/53
--- NOTE | 2017-10-14 15:54 | Diagnostic Imaging Report ---
Indication: Post lung biopsy chest evaluation. Comparison made with prior examination of 10/11/2017. Findings: There is cardiomegaly and some venous congestion. There is some bibasilar atelectasis and/or pneumonitis. Note is again made of a mass within the right mid lung. No pleural effusion or pneumothorax. Mediastinum unremarkable. Impression: Unchanged mass in the right upper lobe. Bibasilar atelectasis and/or pneumonitis. Cardiomegaly and some venous congestion. No evidence of pneumothorax following biopsy. Dictated by: Dictated on workstation # [id number]
--- NOTE | 2017-10-14 16:05 | Diagnostic Imaging Report ---
Indication: Lung mass. Technique and findings: After explaining the risks, benefits and alternatives of the procedure to the patient, consent was obtained. Patient was placed on the CT scanner in the right lateral decubitus position. Conscious sedation was performed with 0.5 mg of Versed. Local anesthesia was obtained with 2% lidocaine. Preliminary CT scan was obtained for localization purposes. A 20-gauge Temno needle was advanced to the lesion under CT guidance. Four core biopsy specimens were obtained. The needle was removed and adequate hemostasis was obtained. Patient tolerated procedure well, left the department in stable condition. Impression: Successful CT-guided lung biopsy as described. Dictated by: Dictated on workstation # [id number]
[2017-10-14] MEDS ORDERED: fluCOnazole (DIFLUCAN) 100 MG TAB PO NR (16:30)
[2017-10-14 17:10] VITALS: BP 113/53
--- NOTE | 2017-10-14 21:34 | Progress Note (SOAP) ---
Subjective Subjective/Events-last exam Patient doing well this AM. Procedure scheduled for 2PM. Patient at baseline oxygen. Tolerated PO diet and ambulation Review of Systems Date Seen by Provider: Oct 14, 2017 Time Seen by Provider: 10:00 Pulmonary: Dyspnea; No Cough Cardiovascular: Edema; No: Chest Pain, Palpitations Gastrointestinal: No: Nausea, Vomiting, Abdominal Pain, Diarrhea, Constipation Focused Exam Lactate Level 10/12/17 08:07: Lactic Acid Level 1.62 Objective Exam Last Set of Vital Signs Vital Signs Date Time Temp Pulse Resp B/P (MAP) Pulse Ox O2 Delivery O2 Flow Rate FiO2 10/14/17 18:41 90 Nasal Cannula 3.00 10/14/17 17:10 96 36 10/14/17 15:50 98.3 20 113/53 (73) Capillary Refill : I&O Intake and Output 10/14/17 00:00 Intake Total 3770 ml Balance 3770 ml Intake Oral 3270 ml IV Total 500 ml # Voids 16 # Bowel Movements 1 General: Alert, Oriented X3, Cooperative, No Acute Distress HEENT: Mucous Memb Moist/[place] Lungs: Clear to Auscultation, Normal Air Movement Heart: Regular Rate, No Murmurs Abdomen: Normal Bowel Sounds, Soft, No Tenderness, No Hepatosplenomegaly, No Masses Extremities: Other (1+ pitting edema bilaterally, baseline) Results/Procedures Lab Laboratory Tests 10/14/17 06:15: White Blood Count 10.4, Red Blood Count 3.66L, Hemoglobin 8.8L, Hematocrit 30L, Mean Corpuscular Volume 83, Mean Corpuscular Hemoglobin 24L, Mean Corpuscular Hemoglobin Concent 29L, Red Cell Distribution Width 17.5H, Platelet Count 534H, Mean Platelet Volume 10.5H, Neutrophils (%) (Auto) 70, Lymphocytes (%) (Auto) 17 , Monocytes (%) (Auto) 8, Eosinophils (%) (Auto) 5, Basophils (%) (Auto) 1, Neutrophils # (Auto) 7.3, Lymphocytes # (Auto) 1.7, Monocytes # (Auto) 0.9, Eosinophils # (Auto) 0.5H, Basophils # (Auto) 0.1, Prothrombin Time 13.6, INR Comment 1.0, Sodium Level 136, Potassium Level 3.8, Chloride Level 88L, Carbon Dioxide Level 38H, Anion Gap 10, Blood Urea Nitrogen 26H, Creatinine 0.68, Estimat Glomerular Filtration Rate > 60, BUN/Creatinine Ratio 38, Glucose Level 127H, Calcium Level 9.2, Total Bilirubin 0.3, Aspartate Amino Transf (AST/SGOT) 15, Alanine Aminotransferase (ALT/SGPT) 11, Alkaline Phosphatase 84, Total Protein 8.0, Albumin 3.5 10/14/17 09:49: Glucometer 99 10/14/17 14:34: Glucometer 121H 10/14/17 19:46: Glucometer 145H Microbiology 10/11/17 Blood Culture - Preliminary, Resulted No growth Radiology Date of Exam: 10/11/17 CHEST PA/LAT (2 VIEW) INDICATION: Pneumonia. COMPARISON: 06/20/2017. FINDINGS: Two views of the chest are obtained. Heart size is normal. The pulmonary vessels do not appear congested. There is no pneumothorax or pleural fluid suspected. There is a 4.6 cm mass-like opacity of the right upper lobe adjacent to the right hilum and there is a new nodular prominence of the right pulmonary artery. Findings are concerning for neoplastic process or adenopathy. Some atelectasis or scarring in the lingula/left lung base appears fairly stable. There are degenerative changes in the spine. IMPRESSION: There is a new 4.6 cm mass-like opacity right upper lobe with possible right hilar adenopathy. CT scan of the chest is recommended for further evaluation. Some airspace disease in the lingula/left lung base is similar to the prior study. Assessment/Plan Assessment/Plan (1) Acute and chronic respiratory failure with hypoxia Status: Acute Assessment & Plan: - Titrate oxygen as tolerated, MAT protocol, Continue antibiotics, CT chest pending for concerning mass in lung 10/13: continue to titrate oxygen, CT guided bx scheduled for tomorrow, continue antibiotics at this time 10/14: CT guided Bx today, Pt at baseline oxygen (2) Pneumonia Status: Acute Assessment & Plan: - See Above, will continue antibiotics at this time Qualifiers: Qualified Codes: J18.1 - Lobar pneumonia, unspecified organism (3) Lung mass Status: Acute Assessment & Plan: - Right Upper lobe mass with adenopathy, CT chest pending 10/13: CT guided Bx scheduled for tomorrow 10/14: Bx done today (4) HTN (hypertension) Status: Chronic Assessment & Plan: - Continue home meds Qualifiers: Qualified Codes: I10 - Essential (primary) hypertension (5) Normocytic anemia Status: Chronic Assessment & Plan: - Getting iron studies, HDS - With Iron Deficiency, Will start PO iron (6) Pre-diabetes Status: Chronic Assessment & Plan: 10/14: Alc 5.9 (7) DVT prophylaxis Status: Acute Assessment & Plan: - Holding dose for procedure in AM Clinical Quality Measures DVT/VTE Risk/Contraindication: Risk Factor Score Per Nursin RFS Level Per Nursing on Admit: 4+=Very High NGUYEN KEEN MD Oct 14, 2017 21:33
[2017-10-14] MEDS: PRAMIPEXOLE 0.125 MG (MIRAPEX) TABLET PO SCH (22:19)
[2017-10-15] VITALS: BP 126/61
[2017-10-15] MEDS: CEFEPIME INJECTION 2,000 MG in NS (IVPB) 50 ML IV SCH ×2 (00:13→10:45)
[2017-10-15] MEDS: FUROSEMIDE 40 MG (LASIX) TAB PO SCH (05:45)
[2017-10-15] MEDS: PANTOPRAZOLE 20 MG TABLET (PROTONIX) PO SCH (05:45)
[2017-10-15] MEDS: KCL 20 MEQ TAB (K-DUR) PO SCH (05:45)
[2017-10-15] MEDS: METOLAZONE 2.5 MG (ZAROXOLYN) TAB PO SCH (05:45)
[2017-10-15 06:22] LABS: BASOPHILS # (AUTO) 0.1 10^3/uL (0.0-0.1); BASOPHILS % (AUTO) 1 % (0-10); EOSINOPHILS # (AUTO) 0.4 10^3/uL (0.0-0.3); EOSINOPHILS % (AUTO) 4 % (0-10); HEMATOCRIT 30 % (35-52); HEMOGLOBIN 8.5 G/DL (11.5-16.0); LYMPHOCYTES # (AUTO) 1.5 X 10^3 (1.0-4.0); LYMPHOCYTES % (AUTO) 15 % (12-44); MEAN CORPUSCULAR HEMOGLOBIN 23 PG (25-34); MEAN CORPUSCULAR HGB CONC 28 G/DL (32-36); MEAN CORPUSCULAR VOLUME 83 FL (80-99); MEAN PLATELET VOLUME 10.4 FL (7.4-10.4); MONOCYTES % (AUTO) 10 % (0-12); NEUTROPHILS # (AUTO) 7.5 X 10^3 (1.8-7.8); NEUTROPHILS % (AUTO) 71 % (42-75); PLATELET COUNT 542 10^3/uL (130-400); RED BLOOD COUNT 3.64 10^6/uL (4.35-5.85); RED CELL DISTRIBUTION WIDTH 17.7 % (10.0-14.5); WHITE BLOOD COUNT 10.5 10^3/uL (4.3-11.0)
[2017-10-15] MEDS: RT-ALBUTEROL/IPRATROPIUM 3 ML (DUONEB) VIAL INH SCH ×2 (07:29→11:54)
[2017-10-15 08:35] VITALS: BP 143/67
[2017-10-15] MEDS: rOPINIRole 1 MG (REQUIP) TABLET PO SCH (08:52)
[2017-10-15] MEDS: LOSARTAN 100 MG (COZAAR) TABLET PO SCH (08:52)
[2017-10-15] MEDS: FERROUS SULF 325 MG (IRON) TAB PO SCH (08:52)
[2017-10-15] MEDS ORDERED: MICONAZOLE NITRATE 2% CRM 30 GM TP SCH (09:45)
--- NOTE | 2017-10-15 09:50 | Discharge Summary ---
Diagnosis/Chief Complaint Date of Admission Oct 11, 2017 at 11:40 am Date of Discharge 10/15/2017 Admission Diagnosis Admission Diagnosis Acute on Chronic Respiratory Failure with Hypoxia Bilaterally PNA Right lung mass HTN Normocytic Anemia Pre DM Tobacco Use Discharge Diagnosis See Above Chief Complaint/HPI Chief Complaint/HPI 62 yo F that was sent from [facility] for respiratory distress from bilateral pneumonia. Patient has known COPD and is chronically on 2-3 L at baseline, for the last 3 days patient has been requiring 5L to maintain oxygen saturations. She has had 3 days of antibiotics without any improvement. Patient states that she has been feeling worse for the last month with increase SOA. Denies any fevers or chills. No sick contacts. Patient states that she has not missed any medications. Discharge Summary-Simple/Stand Procedures CT guided Biopsy of Lung mass: Pathology pending Consultations None Discharge Physical Examination Allergies: Coded Allergies: latex (Unverified Allergy, Unknown, 10/11/17) gabapentin (Unverified Adverse Reaction, Unknown, drowsiness and change in mental status, 10/11/17) Vitals & I&Os Vital Sign - Last 12Hours Date Time Temp Pulse Resp B/P (MAP) Pulse Ox O2 Delivery O2 Flow Rate FiO2 10/15/17 08:56 Nasal Cannula 3.00 10/15/17 08:35 98.1 100 20 143/67 (92) 91 10/14/17 17:10 36 Intake and Output 10/15/17 00:00 Intake Total 1500 ml Balance 1500 ml General Appearance: Alert, Oriented X3, Cooperative, No Acute Distress Respiratory: Clear to Auscultation, Normal Air Movement Cardiovascular: Regular Rate, No Murmurs Abdominal: Normal Bowel Sounds, Soft, No Tenderness, No Masses Extremities: No Edema, No Tenderness/Swelling Skin: No Rashes, No Breakdown Neuro: Normal Gait, Normal Speech, Strength at 5/5 X4 Ext, Sensation Intact, Cranial Nerves 3-12 NL Psych/Mental Status: Mental Status NL, Mood NL Hospital Course See final discharge diagnosis. Pending Labs Lung biopsy pathology pending Radiology Reviewed Date of Exam: 10/11/17 CHEST PA/LAT (2 VIEW) INDICATION: Pneumonia. COMPARISON: 06/20/2017. FINDINGS: Two views of the chest are obtained. Heart size is normal. The pulmonary vessels do not appear congested. There is no pneumothorax or pleural fluid suspected. There is a 4.6 cm mass-like opacity of the right upper lobe adjacent to the right hilum and there is a new nodular prominence of the right pulmonary artery. Findings are concerning for neoplastic process or adenopathy. Some atelectasis or scarring in the lingula/left lung base appears fairly stable. There are degenerative changes in the spine. IMPRESSION: There is a new 4.6 cm mass-like opacity right upper lobe with possible right hilar adenopathy. CT scan of the chest is recommended for further evaluation. Some airspace disease in the lingula/left lung base is similar to the prior study. Discussion & Recommendations 62 yo F that had failed outpatient treatment of PNA Acute on Chronic Respiratory Failure with Hypoxia: Patient failed outpatient treatment of PNA. Xray showed concerns for mass. CT lung and abdomen was ordered and Right lung mass was identified. CT guided biopsy was performed in hospital with pathology pending. Patient was sent home on baseline oxygen with continued steroids and antibiotics to complete at home. Bilaterally PNA: See Above Right lung mass: See Above HTN: Continued on home meds. No change Normocytic Anemia: Remained baseline during admission. Pre DM: A1c 5.9 Tobacco Use: Discussed the importance of cessation due to worsening lung function Patient was sent home on baseline oxygen with close follow up with PCP Yumiko Sanon to review pathology results. Discharge Condition at discharge Guarded Instructions to patient/family Please see electronic discharge instructions given to patient. Discharge Medications Reviewed and agree with Discharge Medication list on patient's Discharge Instruction sheet Clinical Quality Measures DVT/VTE Risk/Contraindication: Risk Factor Score Per Nursin RFS Level Per Nursing on Admit: 4+=Very High Copy Copies To 1: Yumiko PIPER HOLLY R MD Oct 15, 2017 09:50
[2017-10-15] MEDS ORDERED: MICO45CR71 VG (09:53)
--- NOTE | 2017-10-15 09:56 | Discharge Instructions ---
Discharge Inst-[facility] Discharge Medications New, Converted or Re-Newed RX: Transmitted to Pharmacy New Medications: Miconazole Nitrate (Monistat 7) 45 Gm Cream.appl 45 GM VG BID for 7 Days, APPLIC Continued Medications: Albuterol Sulfate (Ventolin Hfa) 18 Gm Hfa.aer.ad 2 PUFF INH Q4H PRN for SHORTNESS OF BREATH, INHALER Budesonide/Formoterol Fumarate (Symbicort 160-4.5 Mcg Inhaler) 10.2 Gm Hfa.aer.ad 2 PUFF IH BID, INHALER Ferrous Sulfate (Ferrous Sulfate) 325 Mg Tablet 325 MG PO DAILY Fluticasone Propionate (Fluticasone Propionate) 16 Gm Rex.susp 2 SPRAY NS BID, EA Furosemide (Furosemide) 40 Mg Tablet 40 MG PO BID Ipratropium/Albuterol Sulfate (Iprat-Albut 0.5-3(2.5) mg/3 ml) 3 Ml Ampul.neb 3 ML NEB QID PRN for SHORTNESS OF BREATH, EA Losartan Potassium (Losartan Potassium) 100 Mg Tablet 100 MG PO DAILY Metformin HCl (Metformin HCl) 500 Mg Tablet 500 MG PO HS Metolazone (Metolazone) 2.5 Mg Tablet 2.5 MG PO DAILY Montelukast Sodium (Montelukast Sodium) 10 Mg Tablet 10 MG PO HS, TAB Omeprazole (Omeprazole) 20 Mg Capsule.dr 20 MG PO DAILY Potassium Chloride (Potassium Chloride) 20 Meq Tab.er.prt 20 MEQ PO DAILY Pramipexole Di-HCl (Pramipexole Dihydrochloride) 0.125 Mg Tablet 0.125 MG PO HS Ropinirole HCl (Ropinirole HCl) 2 Mg Tablet 2 MG PO QID, TAB Tramadol HCl (Tramadol HCl) 50 Mg Tablet 50 MG PO BID PRN for PAIN-MODERATE Patient Instructions Goal/Follow Up Appt: Follow up appt with Yumiko Sanon on at 1PM Patient Instructions: - Make sure to take your breathing treatments scheduled until seen by [facility] Return to [facility] For: - Shortness of breath not improved after treatment - Chest pain Activity & Diet Discharge Diet: ADA Diet, Cardiac Diet Activity as Tolerated: Yes Orders-Post D/C & Referrals Pneu Vac Indicated: Yes Copy Copies To 1: Yumiko PIPER HOLLY R MD Oct 15, 2017 9:55 am
[2017-10-15] MEDS ORDERED: ACHD5005 PO ×2 (12:04→12:35)
[2017-10-15 13:30] VITALS: BP 143/67
--- NOTE | 2017-10-18 10:15 | Physician Query Clarification ---
PQ-Further Specificity Admission/Discharge Admission Date: Oct 11, 2017 at 11:40 Discharge Date: Oct 15, 2017 at 13:30 The medical record reflects the following clinical scenario: History/Risk Factors: Pneumonia Clinical Findings: SOA, respiratory distress, 5L to maintain O2 sat Treatment: High flow O2, MAT protocol Question: Can you further specify diagnosis/condition per the clinical indicators above? Please document below. 1. Acute on chronic respiratory failure with hypoxia 2. acute respiratory distress 3. Other, with explanation of the clinical findings. 4. Clinically undetermined, no explanation for the clinical findings. PHYSICIAN RESPONSE Can you specify per above: 1 In responding to this query, please exercise your independent professional judgment. The purpose of this communication is to more accurately reflect the complexity of your patients condition. The fact that a question is asked does not imply that any particular answer is desired or expected. Thank you for your timely response to this clarification. Requestors name: Catina THIS PHYSICIAN QUERY FORM IS A PERMANENT PART OF THE MEDICAL RECORD CATINA JORDAN Oct 18, 2017 10:15 NGUYEN KEEN MD Oct 25, 2017 10:30
--- NOTE | 2017-10-28 10:27 | Physician Query Clarification ---
PQ-Intro New Diagnosis Admission/Discharge Admission Date: Oct 11, 2017 at 11:40 Discharge Date: Oct 15, 2017 at 13:30 The medical record reflects the following clinical scenario: History/Risk Factors: Pneumonia, Acute on chronic respiratory failure w/ hypoxia, COPD Clinical Findings: 4-6 cm mass RUL qith possible Rt hilar adenopathy, path small focus of atypical cells suspicious for squamous cell carcinoma Treatment: biopsy Question: What condition best reflects the above clinical scenario? Please document below. 1. Squamous cell carcinoma RUL lung 2. mass RUL lung 3. Other, with explanation of the clinical findings. 4. Clinically undetermined, no explanation for the clinical findings. PHYSICIAN RESPONSE What condition reflects above: 1 Explanation of clincal finding Pathology returned after patient was discharged from hospital but bx was done during hospital stay which is why it was not included in DC summary or diagnosis In responding to this query, please exercise your independent professional judgment. The purpose of this communication is to more accurately reflect the complexity of your patients condition. The fact that a question is asked does not imply that any particular answer is desired or expected. Thank you for your timely response to this clarification. Requestors name: Catina THIS PHYSICIAN QUERY FORM IS A PERMANENT PART OF THE MEDICAL RECORD CATINA JORDAN Oct 28, 2017 10:27 NGUYEN KEEN MD Oct 31, 2017 20:38
== END 2017-10-15 13:30 | disposition home or self-care (01) | DRG 189 ==
LOC: 4TH 11:40
PROVIDERS: ADMIT Family Medicine; ATTEND Family Medicine
PROC: 0BBC3ZX Excision of Right Upper Lung Lobe, Percutaneous Approach, Diagnostic (ICD-10-PCS; principal; 2017-10-14)
DX: J96.21 Acute and chronic respiratory failure with hypoxia (principal); J18.9 Pneumonia, unspecified organism; J44.0 Chronic obstructive pulmonary disease with (acute) lower respiratory infection; R91.8 Other nonspecific abnormal finding of lung field; I10 Essential (primary) hypertension; D64.9 Anemia, unspecified; R63.0 Anorexia; R63.4 Abnormal weight loss; R73.03 Prediabetes; Z87.891 Personal history of nicotine dependence; Z99.81 Dependence on supplemental oxygen
CPT/HCPCS: 36415; 71045; 71046; 71250; 77012; 80048; 80053; 82728; 82962; 83036; 83540; 83605; 85025; 85610; 86141; 87040; 88305; 88344; 94640; 94760; 99156

== ENCOUNTER 2017-11-28 05:35 | Outpatient (CLI) | payer MEDICARE ==
[~2017-11-28] VITALS: Ht 162.6 cm; Wt 114.3 kg
[~2017-11-28 05:35] MED LIST changes: +ACHD5005 PO; +ALBU18HF2 INH; +BUDE10.2 IH; +DOXY100C42 PO; +FERR325T18 PO; +FLUT16SP22 NS; +FURO40TA4 PO; +IPRA3AMP31 NEB; +LOSA100T28 PO; +METF500T5 PO; +METO2.5T PO; +MICO45CR71 VG; +MONT10TA24 PO; +OMEP20CA12 PO; +POTA20TA15 PO; +PRAM0.128 PO; +ROPI2TAB4 PO; -RT-ALBUTEROL SULF 2.5 MG/3 ML PRE-MIX VIAL INH ONE; +TRAM50TA2 PO
[2017-11-28] MEDS ORDERED: CETI10TA17 PO (15:01)
[2017-12-03] MEDS ORDERED: ACHD5005 PO (14:28)
== END 2017-11-28 15:09 ==
LOC: PREOP 05:35
PROVIDERS: ATTEND Surgery
DX: Z01.818 Encounter for other preprocedural examination (principal)

== ENCOUNTER 2017-12-03 08:19 | Day surgery (SDC) | payer MEDICARE ==
[~2017-12-03] VITALS: Ht 162.6 cm; Wt 114.3 kg
[~2017-12-03 08:19] MED LIST changes: +CETI10TA17 PO
[2017-12-03 09:00] VITALS: BP 148/76
[2017-12-03] MEDS ORDERED: ceFAZolin 2 GM IV Premixed 50 ML IV ONE (09:00)
[2017-12-03] MEDS: LACTATED RINGERS 1,000 ML IV PRN ×2 (09:00→13:50)
[2017-12-03] MEDS ORDERED: FLEET ENEMA ADULT 1 EA BTL PR PRN (09:00)
[2017-12-03] MEDS ORDERED: FLEET ENEMA ADULT 1 EA BTL ONE (09:01)
[2017-12-03] MEDS ORDERED: ONDANSETRON 4 MG/2 ML (SDV) Z0FRAN IV ONE (09:30)
[2017-12-03] MEDS ORDERED: FAMOTIDINE 20MG/2ML IV (PEPCID) IV ONE (09:30)
[2017-12-03] MEDS ORDERED: PROPOFOL INJECTION 50 ML IV ONE (11:56)
[2017-12-03] MEDS ORDERED: MIDAZOLAM 2 MG/2 ML (VERSED) VIAL ONE ×2 (11:56→13:54)
--- NOTE | 2017-12-03 13:07 | Progress Note-Pre Operative ---
Pre-Operative Progress Note H&P Reviewed The H&P was reviewed, patient examined and no changes noted. Date Seen by Provider: Dec 03, 2017 Time Seen by Provider: 13:07 Date H&P Reviewed: Dec 03, 2017 Time H&P Reviewed: 13:07 Pre-Operative Diagnosis: bright red blood per rectum, anal uptake on PET JOEL PATINO DO Dec 03, 2017 13:07
[2017-12-03] MEDS ORDERED: BUPIVACAINE 0.5% 30 ML (SENSORCAINE) VIAL ONE (14:04)
[2017-12-03] MEDS ORDERED: LIDOCAINE 1% INJ 20 ML 20 ML VIAL ONE (14:05)
--- NOTE | 2017-12-03 14:26 | Progress Note-Post Operative ---
Post-Operative Progess Note Surgeon (s)/Acetylene Torch Operator (s) Surgeon JOEL PATINO DO Acetylene Torch Operator: na Pre-Operative Diagnosis bright red blood per rectum, anal uptake on PET Post-Operative Diagnosis anorectal polyp, anal ulceration Procedure & Operative Findings Date of Procedure 12/03/17 Procedure Performed/Findings flexible sigmoidoscopy, excisional biopsy anorectal polyp, biopsy anal ulceration Anesthesia Type mac c local Estimated Blood Loss Estimated blood loss (mL): min Specimens/Packing Specimens Removed anorectal polylp, anal ulceration JOEL PATINO DO Dec 03, 2017 14:26
[2017-12-03] MEDS ORDERED: ACHD5005 PO (14:28)
[2017-12-03] MEDS ORDERED: morphine INJ 10 MG/ML 1ML (SYR OR VIAL) IVP PRN (14:30)
[2017-12-03] MEDS ORDERED: HYDROcodone/APAP 5 MG/325 MG (LORTAB) TAB PO PRN (14:30)
--- NOTE | 2017-12-03 14:30 | Discharge Inst-Simple/Standard ---
Discharge Inst-Standard Discharge Medications New, Converted or Re-Newed RX: RX on Chart Patient Instructions/Follow Up Plan of Care/Instructions/FU: 2 weeks Bush Activity as Tolerated: Yes Discharge Diet: Regular Diet Other Inst to Patient Follow up Appt: Make appointment for 2 week. Instructions: No strenuous activity. May shower in 24 hours, no tub bath or soaking. Use incentive spirometer at home as directed. No Smoking Skin/Wound Care: May remove bandages. You need to leave the white strips over incision on they will fall off on their own. Symptoms to Report: Appetite Changes, Extremity Discoloration, Numbness/Tingling, Swelling Increased , Bleeding Excessive, Eyesight Changes, Pain Increased, Urine Color Change, Constipation(Persistent), Fever over 101 degree F, Pain/Pressure in chest, Urinating Difficulty, Cough Up/Vomit Blood, Heart Beat Irreg/Pounding, Pain/ Pressure in jaw, Vaginal Bleeding Increase, Cramps in feet or legs, Lightheadedness, Pain/Pressure in shoulder, Diarrhea(Persistent), Memory Changes Suddenly, Questions/Concerns, Weight gain consecutive days, Dizziness/ Fainting, Nausea/Vomiting, Shortness of Breath, Weight gain over 2 pounds If questions or concerns contact your physician Or seek help at emergency department. JOEL BUSH DO Dec 03, 2017 14:30
[2017-12-03 15:00] VITALS: BP 153/64
[2017-12-03 15:30] VITALS: BP 156/72
[2017-12-03 15:32] VITALS: BP 156/72
--- NOTE | 2017-12-03 20:29 | OPERATIVE REPORT ---
DATE OF SERVICE: 12/03/2017 PREOPERATIVE DIAGNOSIS: Bright red blood per rectum, increased uptake on PET CT scan of anus. POSTOPERATIVE DIAGNOSIS: Anal ulceration and anorectal polyp. PROCEDURES: Flexible sigmoidoscopy with excisional biopsy of anorectal polyp and biopsy of anal ulceration. SURGEON: Joel Bush DO ANESTHESIA: Per PARACHUTE RIGGER, MAC with local. ESTIMATED BLOOD LOSS: Minimal. COMPLICATIONS: None. INDICATIONS: The patient is a 62-year-old female with lung mass and on PET CT scan demonstrating anal uptake. She has asked that this be further evaluated. She understands risks and benefits of procedure and wished to proceed with procedure. Consent was signed in the chart. PROCEDURE: The patient was taken to the operating suite. She was placed in lithotomy position. A digital rectal exam was performed noting a palpable mass erupt about the anorectal junction. Scope was inserted into the anus and advanced up through the sigmoid colon. There were no polyps, masses or ulcerations in the sigmoid colon. Scope was slowly retracted back. Prep had adequate visualization of the rectal and sigmoid portion with lots of irrigation and suction. The scope was then slowly retracted back in the rectum, where it was also retroflexed and anorectal polyp. No other pathology noted. Scope was returned to its normal position, slowly withdrawn until completely removed. At this time, a rectal retractor was used to identify the anorectal polyp and using a harmonic, this was excised. There is also an ulceration noted at the 5 o'clock position, which appears chronic in nature. A biopsy of this area was obtained with biopsy forceps. A total of 5 mL 1% lidocaine in 50:50 ratio was used to anesthetize the area. The patient tolerated the procedure well without any complications. She was taken to recovery room in stable condition. She will follow up in the office in 2 weeks to discuss pathology results. Job ID: [id number] DocumentID: [id number] Dictated Date: 12/03/2017 14:34:11 Rehabilitator Date: 12/03/2017 20:29:02 Dictated By: JOEL BUSH DO
== END 2017-12-03 15:32 | disposition home or self-care (01) ==
LOC: SDC 08:19
PROVIDERS: ATTEND Surgery
DX: K62.1 Rectal polyp (principal); K62.6 Ulcer of anus and rectum; C34.31 Malignant neoplasm of lower lobe, right bronchus or lung; I10 Essential (primary) hypertension; J45.909 Unspecified asthma, uncomplicated; J43.9 Emphysema, unspecified; E11.42 Type 2 diabetes mellitus with diabetic polyneuropathy; E66.01 Morbid (severe) obesity due to excess calories; Z68.41 Body mass index [BMI] 40.0-44.9, adult; Z79.84 Long term (current) use of oral hypoglycemic drugs
CPT/HCPCS: 82962; 87081

== ENCOUNTER 2017-12-27 09:00 | Outpatient (CLI) | payer MEDICARE ==
[~2017-12-27] VITALS: Ht 162.6 cm; Wt 114.3 kg
== END 2017-12-27 13:46 | disposition home or self-care (01) ==
LOC: PREOP 09:00
PROVIDERS: ATTEND Internal Medicine Critical Care Medicine
DX: Z01.818 Encounter for other preprocedural examination (principal)

== ENCOUNTER → 2018-01-14 | Outpatient (CLI) | payer MEDICARE, OTHER ==
[~2018-01-14] MED LIST changes: -LOSA100T28 PO; +LOSA100T8 PO; +METF-397 PO; -METF500T5 PO
[2018-01-14 12:07] LABS: ABG BASE EXCESS 13.5 MMOL/L (-2.5-2.5); ABG OXYGEN SATURATION 96 % (94-100); ABG PCO2 62 MMHG (35-45); ABG PH 7.41 (7.37-7.43); ABG PO2 76 MMHG (79-93); ABG TCO2 40.6 MMOL/L (21.0-31.0)
[2018-01-14 12:09] LABS: ALLENS TEST YES-POS; INSPIRED O2 3L; PATIENT TEMP 99.1; VENTILATOR NO
== END ==
LOC: LAB 11:38
PROVIDERS: ATTEND Nurse Practitioner Family
DX: J44.9 Chronic obstructive pulmonary disease, unspecified (principal); E66.2 Morbid (severe) obesity with alveolar hypoventilation; Z68.41 Body mass index [BMI] 40.0-44.9, adult
CPT/HCPCS: 36600; 82805

== ENCOUNTER 2018-01-24 14:04 | Outpatient (RCR) | payer MEDICARE, OTHER | END 2018-02-25 | disposition home or self-care (01) | LOC: ONC 14:04 | PROVIDERS: ATTEND Internal Medicine Hematology & Oncology | DX: C34.31 Malignant neoplasm of lower lobe, right bronchus or lung (principal); K62.9 Disease of anus and rectum, unspecified; Z96.653 Presence of artificial knee joint, bilateral; I10 Essential (primary) hypertension; E78.5 Hyperlipidemia, unspecified; J43.9 Emphysema, unspecified; J30.9 Allergic rhinitis, unspecified; E11.9 Type 2 diabetes mellitus without complications; R09.02 Hypoxemia; G25.81 Restless legs syndrome; Z87.891 Personal history of nicotine dependence; Z79.899 Other long term (current) drug therapy; Z87.01 Personal history of pneumonia (recurrent) | CPT/HCPCS: 99204; 99213; 99214 ==